=== PATIENT | female | born 1965 | race Caucasian/White ===

== ENCOUNTER 2016-06-11 07:40 | Emergency (ER) | payer BC ==
[2016-06-11 07:51] VITALS: TEMP 97.6
[2016-06-11] MEDS ORDERED: ONDANSETRON 4 MG/2 ML VIAL IVP STA (08:44)
[2016-06-11] MEDS ORDERED: SODIUM CHLORIDE 0.9% 1,000 ML IV ONE (08:44)
--- NOTE | 2016-06-11 08:49 | ED ---
Nausea/Vomiting/Diarrhea HPI - General Chief complaint: Nausea/Vomiting/Diarrhea Stated complaint: Dehydration Time Seen by Provider: 06/11/16 08:35 Source: patient, family, RN notes reviewed Mode of arrival: ambulatory Limitations: no limitations - History of Present Illness Initial comments: Patient is a 51-year-old female presents to the emergency room for evaluation of dry heaving. Patient states that she has had the dry heaves for the past week. Patient states that she is unable to keep any food down. Patient denies abdominal pain. Patient denies diarrhea or constipation. Patient states she feels like she is dehydrated because she has not been able to eat anything for the past week. Patient states she is urinating a little but not as much as she will because she is not eating or drinking. Patient also states she's had a dry cough for the past week patient does admit to smoking daily. Patient does admit to sinus congestion. Patient denies ear pain or throat pain. Patient denies any current fevers. Patient denies recent travel outside the country. Patient denies sick contacts. Patient does state she has a history of breast cancer was on chemotherapy in 2008. Patient states she has an ileostomy bag placed due to chemotherapy side effects. Patient states she is only taking Reglan as needed for stomach bloating. Patient denies being on any medications or any other significant past medical history. - Related Data Home Medications Medication Instructions Recorded Confirmed Metoclopramide [Reglan] 10 mg PO BID 06/11/16 06/11/16 Previous Rx's Medication Instructions Recorded Ciprofloxacin Oral Susp [Cipro 250 mg PO BID 5 Days 06/11/16 Susp] Ondansetron Odt [Zofran Odt] 4 mg PO Q8HR PRN #12 tab 06/11/16 Allergies Allergy/AdvReac Type Severity Reaction Status Date / Time adhesive tape Allergy Rash/Hives Verified 06/11/16 08:25 metronidazole [From Flagyl] Allergy Rash/Hives Verified 06/11/16 08:26 Review of Systems ROS Statement: Those systems with pertinent positive or pertinent negative responses have been documented in the HPI. ROS Other: All systems not noted in ROS Statement are negative. Past Medical History Past Medical History: Cancer Additional Past Medical History / Comment(s): breast History of Any Multi-Drug Resistant Organisms: None Reported Past Surgical History: Breast Surgery, Hysterectomy Additional Past Surgical History / Comment(s): ileostomy. alexis mastectomy Past Psychological History: No Psychological Hx Reported Smoking Status: Former smoker Past Alcohol Use History: None Reported Past Drug Use History: None Reported General Exam - General Exam Comments Initial Comments: Laying in exam room, no acute distress. Limitations: no limitations General appearance: alert, in no apparent distress Head exam: Present: atraumatic, normocephalic, normal inspection Eye exam: Present: normal appearance, PERRL, EOMI Pupils: Present: normal accommodation ENT exam: Present: normal exam, normal oropharynx, mucous membranes moist, TM's normal bilaterally, normal external ear exam Neck exam: Present: normal inspection, full ROM. Absent: tenderness, lymphadenopathy Respiratory exam: Present: normal lung sounds bilaterally. Absent: respiratory distress Cardiovascular Exam: Present: regular rate, normal rhythm, normal heart sounds GI/Abdominal exam: Present: soft, normal bowel sounds, other (Ileostomy bag placed). Absent: distended, tenderness, guarding, rebound, rigid Extremities exam: Present: normal inspection Back exam: Present: normal inspection Neurological exam: Present: alert, oriented X3, CN II-XII intact, normal gait Psychiatric exam: Present: normal affect, normal mood Skin exam: Present: warm, dry, intact, normal color. Absent: rash Course Vital Signs 06/11/16 06/11/16 06/11/16 07:47 10:02 11:09 Temperature 97.6 F Pulse Rate 92 60 59 L Respiratory 18 18 16 Rate Blood Pressure 85/65 81/58 94/62 O2 Sat by Pulse 98 100 100 Oximetry Medical Decision Making - Medical Decision Making Patient is a 51-year-old female presents emergency room for evaluation of nausea and decreased appetite. Labs showed no concerning findings. Urinalysis suspicious for urinary tract infection. Patient states she is feeling better after medications. Will place patient on antibiotics to treat for urinary tract infection. Advised patient to return for worsening symptoms. Patient states she understands everything that was discussed with her. Case discussed with Dr. Moncada. - Lab Data Result diagrams: 06/11/16 09:10 06/11/16 09:10 Lab Results 06/11/16 06/11/16 06/11/16 Range/Units 09:10 09:10 09:10 WBC 4.1 (3.8-10.6) k/uL RBC 4.88 (3.80-5.40) m/uL Hgb 16.1 H (11.4-16.0) gm/dL Hct 47.9 H (34.0-46.0) % MCV 98.3 (80.0-100.0) fL MCH 32.9 (25.0-35.0) pg MCHC 33.5 (31.0-37.0) g/dL RDW 14.8 (11.5-15.5) % Plt Count 192 (150-450) k/uL Neutrophils % 73 % Lymphocytes % 16 % Monocytes % 7 % Eosinophils % 2 % Basophils % 1 % Neutrophils # 3.0 (1.3-7.7) k/uL Lymphocytes # 0.6 L (1.0-4.8) k/uL Monocytes # 0.3 (0-1.0) k/uL Eosinophils # 0.1 (0-0.7) k/uL Basophils # 0.1 (0-0.2) k/uL Sodium 131 L (137-145) mmol/L Potassium 3.5 (3.5-5.1) mmol/L Chloride 93 L (98-107) mmol/L Carbon Dioxide 22 (22-30) mmol/L Anion Gap 16 mmol/L BUN 17 (7-17) mg/dL Creatinine 0.79 (0.52-1.04) mg/dL Est GFR (MDRD) Af Amer >60 (>60 ml/min/1.73 sqM) Est GFR (MDRD) Non-Af >60 (>60 ml/min/1.73 sqM) Glucose 111 H (74-99) mg/dL Calcium 9.4 (8.4-10.2) mg/dL Total Bilirubin 1.4 H (0.2-1.3) mg/dL AST 130 H (14-36) U/L ALT 102 H (9-52) U/L Alkaline Phosphatase 198 H (38-126) U/L Total Protein 7.4 (6.3-8.2) g/dL Albumin 4.5 (3.5-5.0) g/dL Amylase 73 (30-110) U/L Lipase 121 (23-300) U/L Urine Color Urine Appearance (Clear) Urine pH (5.0-8.0) Ur Specific Burt (1.001-1.035) Urine Protein (Negative) Urine Glucose (UA) (Negative) Urine Ketones (Negative) Urine Blood (Negative) Urine Nitrate (Negative) Urine Bilirubin (Negative) Urine Urobilinogen (<2.0) mg/dL Ur Leukocyte Esterase (Negative) Urine RBC (0-5) /hpf Urine WBC (0-5) /hpf Ur Squamous Epith Cells (0-4) /hpf Urine Mucus (None) /hpf Influenza Type A RNA (Not Detectd) Influenza Type B (PCR) (Not Detectd) 06/11/16 06/11/16 Range/Units 09:27 09:27 WBC (3.8-10.6) k/uL RBC (3.80-5.40) m/uL Hgb (11.4-16.0) gm/dL Hct (34.0-46.0) % MCV (80.0-100.0) fL MCH (25.0-35.0) pg MCHC (31.0-37.0) g/dL RDW (11.5-15.5) % Plt Count (150-450) k/uL Neutrophils % % Lymphocytes % % Monocytes % % Eosinophils % % Basophils % % Neutrophils # (1.3-7.7) k/uL Lymphocytes # (1.0-4.8) k/uL Monocytes # (0-1.0) k/uL Eosinophils # (0-0.7) k/uL Basophils # (0-0.2) k/uL Sodium (137-145) mmol/L Potassium (3.5-5.1) mmol/L Chloride (98-107) mmol/L Carbon Dioxide (22-30) mmol/L Anion Gap mmol/L BUN (7-17) mg/dL Creatinine (0.52-1.04) mg/dL Est GFR (MDRD) Af Amer (>60 ml/min/1.73 sqM) Est GFR (MDRD) Non-Af (>60 ml/min/1.73 sqM) Glucose (74-99) mg/dL Calcium (8.4-10.2) mg/dL Total Bilirubin (0.2-1.3) mg/dL AST (14-36) U/L ALT (9-52) U/L Alkaline Phosphatase (38-126) U/L Total Protein (6.3-8.2) g/dL Albumin (3.5-5.0) g/dL Amylase (30-110) U/L Lipase (23-300) U/L Urine Color Yellow Urine Appearance Cloudy H (Clear) Urine pH 6.0 (5.0-8.0) Ur Specific Burt 1.016 (1.001-1.035) Urine Protein 1+ H (Negative) Urine Glucose (UA) Negative (Negative) Urine Ketones 1+ H (Negative) Urine Blood Small H (Negative) Urine Nitrate Negative (Negative) Urine Bilirubin 1+ H (Negative) Urine Urobilinogen 2.0 (<2.0) mg/dL Ur Leukocyte Esterase Large H (Negative) Urine RBC 10 H (0-5) /hpf Urine WBC 11 H (0-5) /hpf Ur Squamous Epith Cells 2 (0-4) /hpf Urine Mucus Occasional H (None) /hpf Influenza Type A RNA Not Detected (Not Detectd) Influenza Type B (PCR) Not Detected (Not Detectd) - Radiology Data Radiology results: report reviewed, image reviewed Disposition Clinical Impression: Nausea and vomiting, Urinary tract infection Disposition: HOME SELF-CARE Condition: Good Instructions: Acute Nausea and Vomiting (ED), Urinary Tract Infection in Women (ED) Additional Instructions: Take antibiotics as directed. Take Zofran as needed for nausea. Please follow up with primary care provider in 1-2 days. If any new symptom arises, symptoms worsen or fever develops, return to ER as soon as possible. Prescriptions: Ondansetron Odt [Zofran Odt] 4 mg PO Q8HR PRN #12 tab PRN Reason: Nausea Ciprofloxacin Oral Susp [Cipro Susp] 250 mg PO BID 5 Days Referrals: Kip Redding MD [Primary Care Provider] - 1-2 days Time of Disposition: 10:49
[2016-06-11 09:34] LABS: Basophils # (A) 0.1 k/uL (0-0.2); Basophils % (A) 1 %; CH 34.6; CHCM 35.4; Eosinophils # (A) 0.1 k/uL (0-0.7); Eosinophils % (A) 2 %; HCT 47.9 % (34.0-46.0); HDW 2.64; HGB 16.1 gm/dL (11.4-16.0); Luc # (Auto) 0.06; Luc % (Auto) 2; Lymphocytes # (A) 0.6 k/uL (1.0-4.8); Lymphocytes % (A) 16 %; MCH 32.9 pg (25.0-35.0); MCHC 33.5 g/dL (31.0-37.0); MCV 98.3 fL (80.0-100.0); Mean Platelet Volume 8.7; Monocytes # (A) 0.3 k/uL (0-1.0); Monocytes % (A) 7 %; Neutrophils % (A) 73 %; RBC 4.88 m/uL (3.80-5.40); RDW 14.8 % (11.5-15.5); WBC 4.1 k/uL (3.8-10.6)
[2016-06-11 09:45] LABS: ALT 102 U/L (9-52); AST 130 U/L (14-36); Alkaline Phosphatase 198 U/L (38-126); Amylase 73 U/L (30-110); Anion Gap 16 mmol/L; Blood Urea Nitrogen 17 mg/dL (7-17); Calcium 9.4 mg/dL (8.4-10.2); Carbon Dioxide 22 mmol/L (22-30); Chloride 93 mmol/L (98-107); Glucose 111 mg/dL (74-99); Non-African American GFR(MDRD) >60 (>60 ml/min/1.73 sqM); Potassium 3.5 mmol/L (3.5-5.1); Sodium 131 mmol/L (137-145); Total Bilirubin 1.4 mg/dL (0.2-1.3); Total Protein 7.4 g/dL (6.3-8.2)
--- NOTE | 2016-06-11 09:48 | XR ---
EXAMINATION TYPE: XR chest 2V DATE OF EXAM: 06/11/2016 9:44 AM COMPARISON: 08/08/2013 HISTORY: Cough FINDINGS: The lungs are clear and there is no pneumothorax, pleural effusion, or focal pneumonia. Hyperinflati on suggests COPD. Biapical pleural thickening noted. Degenerative change of the spine. Diffuse osteop enia. IMPRESSION: 1. No acute process.
[2016-06-11 10:09] LABS: Appearance,Urine Cloudy (Clear); Bilirubin,Urine 1+ (Negative); Glucose,Urine (UA) Negative (Negative); Ketones,Urine 1+ (Negative); Leukocyte Esterase,Urine Large (Negative); Mucus,Urine Occasional /hpf; Nitrite,Urine Negative (Negative); Particle Count 8945; Protein,Urine 1+ (Negative); RBC,Urine 10 /hpf (0-5); Specific Gravity,Urine 1.016 (1.001-1.035); Squamous Epithelial Cell,Urine 2 /hpf (0-4); UA Billing (MACRO vs. MICRO) MICRO; WBC,Urine 11 /hpf (0-5)
[2016-06-11 11:10] VITALS: BP 94/62; PULSE 59; RESP 16
== END 2016-06-11 11:10 | disposition home or self-care (01) ==
LOC: EC 07:40
DX: N39.0 Urinary tract infection, site not specified (principal); Z93.2 Ileostomy status; F17.200 Nicotine dependence, unspecified, uncomplicated; Z79.899 Other long term (current) drug therapy; Z88.3 Allergy status to other anti-infective agents; Z85.3 Personal history of malignant neoplasm of breast
CPT/HCPCS: 36415; 80053; 82150; 83690; 85025; 81001; 87502; 71020; 99284; 96374; 96361; J2405

== ENCOUNTER 2020-04-10 21:58 | Inpatient (IN) | payer BC ==
[2020-04-10] MEDS ORDERED: ASPIRIN 81 MG PO STA (22:47)
[2020-04-10 22:52] LABS: AST 59 U/L (14-36); African American GFR (CKD) >90 (>60 ml/min/1.73 sqM); Albumin 2.3 g/dL (3.5-5.0); Alkaline Phosphatase 235 U/L (38-126); Anion Gap 11 mmol/L; Blood Urea Nitrogen 19 mg/dL (7-17); Calcium 6.9 mg/dL (8.4-10.2); Carbon Dioxide 20 mmol/L (22-30); Chloride 101 mmol/L (98-107); Glucose 161 mg/dL (74-99); Non-African American GFR(CKD) >90 (>60 ml/min/1.73 sqM); Potassium 3.4 mmol/L (3.5-5.1); Sodium 132 mmol/L (137-145); Total Bilirubin 1.7 mg/dL (0.2-1.3); Total Protein 5.1 g/dL (6.3-8.2)
[2020-04-10 22:53] LABS: Glucose,Whole Blood 153 mg/dL (75-99)
[2020-04-10 23:02] LABS: INR 1.1 (<1.2); Partial Thromboplastin Time 22.9 sec (22.0-30.0); Prothrombin Time 11.5 sec (9.0-12.0)
--- NOTE | 2020-04-10 23:04 | XR ---
EXAMINATION TYPE: XR chest 2V DATE OF EXAM: 04/10/2020 COMPARISON: 06/11/2016 HISTORY: Syncope TECHNIQUE: FINDINGS: There is pulmonary hyperinflation and flattening of the diaphragm. Heart size is normal. Th ere is no heart failure. Lungs appear clear of consolidation. There are no hilar masses. There is ost eopenia. There is some mild anterior wedging of L1 T11 T10 and T9 and T8 vertebra. T8 vertebra is 50% anterior wedging. IMPRESSION: COPD. There are multiple compression fractures that appear new compared to old exam.
[2020-04-10 23:07] LABS: ALT 17 U/L (4-34)
[2020-04-10 23:19] LABS: Anisocytosis Slight; Basophils % (A) 0 %; Eosinophils % (A) 0 %; HCT 34.9 % (34.0-46.0); HGB 10.8 gm/dL (11.4-16.0); Hypochromasia Slight; Lymphocytes # (A) 0.8 k/uL (1.0-4.8); Lymphocytes % (A) 9 %; MCH 36.8 pg (25.0-35.0); MCHC 31.1 g/dL (31.0-37.0); MCV 118.1 fL (80.0-100.0); Macrocytosis Marked; Monocytes # (A) 0.5 k/uL (0-1.0); Monocytes % (A) 6 %; Neutrophils # (A) 6.9 k/uL (1.3-7.7); Neutrophils % (A) 83 %; Platelet Count 190 k/uL (150-450); RBC 2.95 m/uL (3.80-5.40); RDW 16.5 % (11.5-15.5); WBC 8.3 k/uL (3.8-10.6)
[2020-04-10 23:20] LABS: D-Dimer 1.33 mg/L FEU (<0.60)
[2020-04-10 23:26] LABS: Magnesium 1.8 mg/dL (1.6-2.3); Phosphorus 2.8 mg/dL (2.5-4.5)
[2020-04-10] MEDS ORDERED: HEPARIN SODIUM,PORCINE 5,000 UNIT/ML 1 ML VIAL IV PRN (23:41)
[2020-04-10] MEDS ORDERED: HEPARIN SODIUM,PORCINE 10,000 UNIT/ML 1 ML VIAL IV ONE (23:41)
[2020-04-10] MEDS ORDERED: AZITHROMYCIN 500 MG in SODIUM CHLORIDE 0.9% 250 ML IVPB ONE (23:45)
[2020-04-10] MEDS ORDERED: SODIUM CHLORIDE 0.9% 1,000 ML IV SCH (23:45)
--- NOTE | 2020-04-10 23:45 | CT ---
EXAMINATION TYPE: CT chest angio for PE DATE OF EXAM: 04/10/2020 COMPARISON: None HISTORY: Syncope CT DLP: 179.5 mGycm Automated exposure control for dose reduction was used. CONTRAST: Performed with IV Contrast, patient injected with 70 mL of Isovue 300. There are 3-D post processed images. There is some bullous pulmonary emphysema. There is pulmonary hyperinflation and flattening of the di aphragm. There is no mediastinal adenopathy. There are no hilar masses. There is no aortic aneurysm o r dissection. Ascending aorta measures 2.8 cm. Heart size is normal. There is no pericardial effusion . There is some patchy infiltrate and atelectasis in the right lower lobe. There is small area of ate lectasis left posterior lung base. There are small filling defects in the right lower lobe pulmonary artery and the posterior basal segm ent. There is osteopenia. There is compression fractures of L1 and L2 up to 35%. There is T12 compression 15%. There is T11 and T10 fractures 20%. There is compression of T9 and T8 and T7 up to 50%. There is no paraspinal mass. There is some fatty infiltration of the liver. IMPRESSION: There is evidence of embolism in the right lower lobe pulmonary artery. There is some mild infiltrate and atelectasis right posterior lung base. emphysema. Multiple thoracic compression fractures. No ev idence of right heart strain. Exam was discussed with ER physician at 6:45 PM.
[2020-04-10 23:46] LABS: Appearance,Urine Cloudy (Clear); Bilirubin,Urine Negative (Negative); Blood,Urine Small (Negative); Color,Urine Yellow; Glucose,Urine (UA) Negative (Negative); Hyaline Casts,Urine 626 /lpf (0-2); Ketones,Urine Negative (Negative); Leukocyte Esterase,Urine Large (Negative); Mucus,Urine Rare /hpf; Nitrite,Urine Negative (Negative); PH, Urine 5.5 (5.0-8.0); Protein,Urine 1+ (Negative); RBC,Urine 22 /hpf (0-5); Urobilinogen,Urine <2.0 mg/dL (<2.0); WBC,Urine 110 /hpf (0-5)
[2020-04-11] MEDS: HEPARIN SOD,PORK IN 0.45% NACL 25,000 UNIT in 0.45% NACL 1 250ML.BAG IV SCH (00:21)
[2020-04-11] MEDS ORDERED: SODIUM CHLORIDE 0.9% 500 ML 500 ML IV ONE (00:59)
[2020-04-11] MEDS ORDERED: DEXTROSE 5%-0.45% NACL 1,000 ML IV ONE (00:59)
[2020-04-11] MEDS ORDERED: NALOXONE 0.4 MG/ML 1 ML VIAL IV PRN (01:26)
--- NOTE | 2020-04-11 01:27 | ED ---
General Adult HPI - General Chief complaint: Syncope Stated complaint: Syncope Time Seen by Provider: 04/10/20 22:06 Source: patient, EMS, RN notes reviewed, old records reviewed Mode of arrival: EMS Limitations: no limitations - History of Present Illness Initial comments: 55 year old female patient to ED for weakness, syncopal episode reports that patient is severely malnourished, has very limited oral intake. Patient does have a history of breast cancer and is thought to be remission. Patient has been feeling weak and getting lightheaded when ambulating. Had a brief syncopal episode on the toilet today. Patient reports she has been having chest pain the last 2 days but denies any current pain, denies prior cardiac history. Denies any abdominal pain, any other acute complaints. Systemic: Pt denies fatigue, fever/chills, rash. Pt denies weakness, night sweats, weight loss. Neuro: Pt denies headache, visual disturbances, pre-syncope. HEENT: Pt denies ocular discharge or irritation, otalgia, rhinorrhea, pharyngitis or notable lymphadenopathy. Cardiopulmonary: Pt denies SOB, heart palpitations, dyspnea on exertion. Abdominal/GI: Pt denies abdominal pain, n/v/d. : Pt denies dysuria, burning w/ urination, frequency/urgency. Denies new onset urinary or bowel incontinence. MSK: Pt denies myalgia, loss of strength or function in extremities. Neuro: Pt denies new onset weakness, paresthesias. - Related Data Home Medications Medication Instructions Recorded Confirmed Metoclopramide [Reglan] 10 mg PO BID 06/11/16 06/11/16 Allergies Allergy/AdvReac Type Severity Reaction Status Date / Time adhesive tape Allergy Rash/Hives Verified 04/10/20 22:14 metronidazole [From Flagyl] Allergy Rash/Hives Verified 04/10/20 22:14 Review of Systems ROS Statement: Those systems with pertinent positive or pertinent negative responses have been documented in the HPI. ROS Other: All systems not noted in ROS Statement are negative. Past Medical History Past Medical History: Cancer Additional Past Medical History / Comment(s): breast History of Any Multi-Drug Resistant Organisms: None Reported Past Surgical History: Breast Surgery, Hysterectomy Additional Past Surgical History / Comment(s): ileostomy. alexis mastectomy Past Psychological History: No Psychological Hx Reported Smoking Status: Current every day smoker Past Alcohol Use History: None Reported Past Drug Use History: None Reported General Exam - General Exam Comments Initial Comments: Constitutional: NAD, AOX3, Pt has pleasant affect. HEENT: NC/AT, trachea midline, neck supple, no lymphadenopathy. Posterior pharynx non erythematous, without exudates. External ears appear normal, without discharge. Mucous membranes moist. Eyes PERRLA, EOM intact. There is no scleral icterus. No pallor noted. Cardiopulmonary: RRR, no murmurs, rubs or gallops, no JVD noted. Lungs CTAB in a nterior and posterior bustamante. No peripheral edema. Abdominal exam: Abdomen soft and non-distended. Abdomen non-tender to palpation in all 4 quadrants. Bowel sounds active in LLQ. No hepatosplenomegaly. No ecchymosis Neuro: CN II-XII grossly intact. No nuchal rigidity. No raccon eyes, no miller sign, no hemotympanum. No cervical spinal tenderness. MSK: Full active ROM in upper and lower extremities, 5/5 stregnth. Limitations: no limitations Course Vital Signs 04/10/20 04/10/20 04/11/20 22:08 23:30 00:06 Temperature 97.6 F Pulse Rate 87 74 73 Respiratory 18 16 16 Rate Blood Pressure 121/81 106/73 129/86 O2 Sat by Pulse 98 99 99 Oximetry 04/11/20 01:00 Temperature Pulse Rate 137 H Respiratory 16 Rate Blood Pressure 107/74 O2 Sat by Pulse 96 Oximetry Medical Decision Making - Medical Decision Making 55-year-old female patient to ED for generalized weakness, syncopal episode. Patient is severely malnourished has a BMI of 10 and weight 29 kg. Patient does have ileostomy. No signs are stable, afebrile. Physical exam negative for acute pathology. Laboratory investigations reveal mildelectrolyte abnormalities urinary tract infection, elevated lactic acid. Slightly elevated BNP negative troponin. EKG does display diffuse inverted T waves. Cardiology was contacted by Dr. Ignacio. CTA is positive for right lower lobe PE. Mild infiltrate, emphysema, multiple thoracic depression fractures, no evidence of right heart strain. Patient initiated antibiotics anticoagulation, denies any CI to anticoagulation, will be admitted for further evaluation. Case discussed in depth with Dr. Ignacio. - Lab Data Result diagrams: 04/10/20 22:35 04/10/20 22:35 Lab Results 04/10/20 04/10/20 04/10/20 Range/Units 22:35 22:35 22:35 WBC 8.3 (3.8-10.6) k/uL RBC 2.95 L (3.80-5.40) m/uL Hgb 10.8 L (11.4-16.0) gm/dL Hct 34.9 (34.0-46.0) % MCV 118.1 H (80.0-100.0) fL MCH 36.8 H (25.0-35.0) pg MCHC 31.1 (31.0-37.0) g/dL RDW 16.5 H (11.5-15.5) % Plt Count 190 (150-450) k/uL MPV 9.0 Neutrophils % 83 % Lymphocytes % 9 % Monocytes % 6 % Eosinophils % 0 % Basophils % 0 % Neutrophils # 6.9 (1.3-7.7) k/uL Lymphocytes # 0.8 L (1.0-4.8) k/uL Monocytes # 0.5 (0-1.0) k/uL Eosinophils # 0.0 (0-0.7) k/uL Basophils # 0.0 (0-0.2) k/uL Manual Slide Review Performed Hypochromasia Slight Anisocytosis Slight Macrocytosis Marked A PT 11.5 (9.0-12.0) sec INR 1.1 (<1.2) APTT 22.9 (22.0-30.0) sec D-Dimer 1.33 H (<0.60) mg/L FEU Sodium (137-145) mmol/L Potassium (3.5-5.1) mmol/L Chloride (98-107) mmol/L Carbon Dioxide (22-30) mmol/L Anion Gap mmol/L BUN (7-17) mg/dL Creatinine (0.52-1.04) mg/dL Est GFR (CKD-EPI)AfAm (>60 ml/min/1.73 sqM) Est GFR (CKD-EPI)NonAf (>60 ml/min/1.73 sqM) Glucose (74-99) mg/dL POC Glucose (mg/dL) (75-99) mg/dL POC Glu Pattern Maker ID Plasma Lactic Acid Chase (0.7-2.0) mmol/L Calcium (8.4-10.2) mg/dL Phosphorus (2.5-4.5) mg/dL Magnesium (1.6-2.3) mg/dL Total Bilirubin (0.2-1.3) mg/dL AST (14-36) U/L ALT (4-34) U/L Alkaline Phosphatase (38-126) U/L Troponin I (0.000-0.034) ng/mL NT-Pro-B Natriuret Pep pg/mL Total Protein (6.3-8.2) g/dL Albumin (3.5-5.0) g/dL Urine Color Yellow Urine Appearance Cloudy H (Clear) Urine pH 5.5 (5.0-8.0) Ur Specific [place] 1.050 H (1.001-1.035) Urine Protein 1+ H (Negative) Urine Glucose (UA) Negative (Negative) Urine Ketones Negative (Negative) Urine Blood Small H (Negative) Urine Nitrite Negative (Negative) Urine Bilirubin Negative (Negative) Urine Urobilinogen <2.0 (<2.0) mg/dL Ur Leukocyte Esterase Large H (Negative) Urine RBC 22 H (0-5) /hpf Urine WBC 110 H (0-5) /hpf Urine WBC Clumps Many H (None) /hpf Hyaline Casts 626 H (0-2) /lpf Urine Mucus Rare H (None) /hpf 04/10/20 04/10/20 04/10/20 Range/Units 22:35 22:35 22:51 WBC (3.8-10.6) k/uL RBC (3.80-5.40) m/uL Hgb (11.4-16.0) gm/dL Hct (34.0-46.0) % MCV (80.0-100.0) fL MCH (25.0-35.0) pg MCHC (31.0-37.0) g/dL RDW (11.5-15.5) % Plt Count (150-450) k/uL MPV Neutrophils % % Lymphocytes % % Monocytes % % Eosinophils % % Basophils % % Neutrophils # (1.3-7.7) k/uL Lymphocytes # (1.0-4.8) k/uL Monocytes # (0-1.0) k/uL Eosinophils # (0-0.7) k/uL Basophils # (0-0.2) k/uL Manual Slide Review Hypochromasia Anisocytosis Macrocytosis PT (9.0-12.0) sec INR (<1.2) APTT (22.0-30.0) sec D-Dimer (<0.60) mg/L FEU Sodium 132 L (137-145) mmol/L Potassium 3.4 L (3.5-5.1) mmol/L Chloride 101 (98-107) mmol/L Carbon Dioxide 20 L (22-30) mmol/L Anion Gap 11 mmol/L BUN 19 H (7-17) mg/dL Creatinine 0.49 L (0.52-1.04) mg/dL Est GFR (CKD-EPI)AfAm >90 (>60 ml/min/1.73 sqM) Est GFR (CKD-EPI)NonAf >90 (>60 ml/min/1.73 sqM) Glucose 161 H (74-99) mg/dL POC Glucose (mg/dL) 153 H (75-99) mg/dL POC Glu Pattern Maker ID Lisbeth Camacho Plasma Lactic Acid Chase (0.7-2.0) mmol/L Calcium 6.9 L (8.4-10.2) mg/dL Phosphorus (2.5-4.5) mg/dL Magnesium (1.6-2.3) mg/dL Total Bilirubin 1.7 H (0.2-1.3) mg/dL AST 59 H (14-36) U/L ALT 17 (4-34) U/L Alkaline Phosphatase 235 H (38-126) U/L Troponin I <0.012 (0.000-0.034) ng/mL NT-Pro-B Natriuret Pep pg/mL Total Protein 5.1 L (6.3-8.2) g/dL Albumin 2.3 L (3.5-5.0) g/dL Urine Color Urine Appearance (Clear) Urine pH (5.0-8.0) Ur Specific [place] (1.001-1.035) Urine Protein (Negative) Urine Glucose (UA) (Negative) Urine Ketones (Negative) Urine Blood (Negative) Urine Nitrite (Negative) Urine Bilirubin (Negative) Urine Urobilinogen (<2.0) mg/dL Ur Leukocyte Esterase (Negative) Urine RBC (0-5) /hpf Urine WBC (0-5) /hpf Urine WBC Clumps (None) /hpf Hyaline Casts (0-2) /lpf Urine Mucus (None) /hpf 04/10/20 04/10/20 04/11/20 Range/Units 22:51 23:50 00:15 WBC (3.8-10.6) k/uL RBC (3.80-5.40) m/uL Hgb (11.4-16.0) gm/dL Hct (34.0-46.0) % MCV (80.0-100.0) fL MCH (25.0-35.0) pg MCHC (31.0-37.0) g/dL RDW (11.5-15.5) % Plt Count (150-450) k/uL MPV Neutrophils % % Lymphocytes % % Monocytes % % Eosinophils % % Basophils % % Neutrophils # (1.3-7.7) k/uL Lymphocytes # (1.0-4.8) k/uL Monocytes # (0-1.0) k/uL Eosinophils # (0-0.7) k/uL Basophils # (0-0.2) k/uL Manual Slide Review Hypochromasia Anisocytosis Macrocytosis PT (9.0-12.0) sec INR (<1.2) APTT (22.0-30.0) sec D-Dimer (<0.60) mg/L FEU Sodium (137-145) mmol/L Potassium (3.5-5.1) mmol/L Chloride (98-107) mmol/L Carbon Dioxide (22-30) mmol/L Anion Gap mmol/L BUN (7-17) mg/dL Creatinine (0.52-1.04) mg/dL Est GFR (CKD-EPI)AfAm (>60 ml/min/1.73 sqM) Est GFR (CKD-EPI)NonAf (>60 ml/min/1.73 sqM) Glucose (74-99) mg/dL POC Glucose (mg/dL) (75-99) mg/dL POC Glu Pattern Maker ID Plasma Lactic Acid Chase 4.7 H* (0.7-2.0) mmol/L Calcium (8.4-10.2) mg/dL Phosphorus 2.8 (2.5-4.5) mg/dL Magnesium 1.8 (1.6-2.3) mg/dL Total Bilirubin (0.2-1.3) mg/dL AST (14-36) U/L ALT (4-34) U/L Alkaline Phosphatase (38-126) U/L Troponin I (0.000-0.034) ng/mL NT-Pro-B Natriuret Pep 1050 pg/mL Total Protein (6.3-8.2) g/dL Albumin (3.5-5.0) g/dL Urine Color Urine Appearance (Clear) Urine pH (5.0-8.0) Ur Specific [place] (1.001-1.035) Urine Protein (Negative) Urine Glucose (UA) (Negative) Urine Ketones (Negative) Urine Blood (Negative) Urine Nitrite (Negative) Urine Bilirubin (Negative) Urine Urobilinogen (<2.0) mg/dL Ur Leukocyte Esterase (Negative) Urine RBC (0-5) /hpf Urine WBC (0-5) /hpf Urine WBC Clumps (None) /hpf Hyaline Casts (0-2) /lpf Urine Mucus (None) /hpf Disposition Clinical Impression: Pneumonia, Pulmonary embolism, UTI (urinary tract infection) Disposition: ADMITTED IP TO THIS HOSP Condition: Serious Is patient prescribed a controlled substance at d/c from ED?: No Referrals: Kip Redding MD [Primary Care Provider] - 1-2 days
[2020-04-11 07:28] LABS: Anisocytosis Slight; Basophils % (A) 0 %; Eosinophils # (A) 0.1 k/uL (0-0.7); Eosinophils % (A) 1 %; HGB 9.7 gm/dL (11.4-16.0); Lymphocytes # (A) 1.4 k/uL (1.0-4.8); Lymphocytes % (A) 14 %; MCH 36.6 pg (25.0-35.0); MCHC 31.2 g/dL (31.0-37.0); MCV 117.4 fL (80.0-100.0); Macrocytosis Marked; Mean Platelet Volume 7.8; Monocytes # (A) 0.5 k/uL (0-1.0); Monocytes % (A) 5 %; Neutrophils # (A) 7.9 k/uL (1.3-7.7); Platelet Count 183 k/uL (150-450); RBC 2.64 m/uL (3.80-5.40); RDW 16.3 % (11.5-15.5)
--- NOTE | 2020-04-11 10:49 | ECHOF ---
Referral Reason:PE MEASUREMENTS -------- HEIGHT: 167.6 cm WEIGHT: 28.6 kg BP: 98/52 IVSd: 0.8 cm (0.6 - 1.1) LVIDd: 3.4 cm (3.9 - 5.3) LVPWd: 0.8 cm (0.6 - 1.1) EDV(Teich): 46 ml IVSs: 1.1 cm LVIDs: 2.3 cm LVPWs: 1.2 cm %IVS Thck: 31 % ESV(Teich): 19 ml EF(Teich): 59 % %FS: 31 % SV(Teich): 27 ml LA Diam: 2.5 cm (2.7 - 3.8) RVIDd: 1.9 cm (< 3.3) Ao Diam: 2.8 cm (2.0 - 3.7) AV Cusp: 1.6 cm (1.5 - 2.6) EPSS: 0.6 cm MV E Leonides: 0.86 m/s MV DecT: 209 ms MV Dec A[place]ac: 4.1 m/s MV A Leonides: 0.63 m/s MV E/A Ratio: 1.37 MV PHT: 61 ms AV Vmax: 1.09 m/s AV maxP.76 mmHg TR Vmax: 2.62 m/s TR maxP.48 mmHg RAP: 5.00 mmHg RVSP: 32.48 mmHg MV EF SLOPE: 200.83 mm/s (70 - 150) MV EXCURSION: 23.97 mm (> 18.000) FINDINGS -------- Sinus rhythm. This was a technically adequate study. The left ventricular size is normal. Left ventricular wall thickness is normal. Overall left vent ricular systolic function is normal with, an EF between 60 - 65 %. The right ventricle is normal in size. The left atrial size is normal. The right atrium is normal in size. Interatrial and interventricular septum intact. The aortic valve was not well visualized. Mitral valve is thickened with myxomatous degeneration. Mild mitral annular calcification present. [id number] mitral regurgitation is present. Mild tricuspid regurgitation present. Right ventricular systolic pressure is normal at < 35 mmHg. The pulmonic valve was not well visualized. The aortic root size is normal. Normal inferior vena cava with normal inspiratory collapse consistent with estimated right atrial pre ssure of 5 mmHg. There is a trivial pericardial effusion present. CONCLUSIONS -------- 1. The left ventricular size is normal. 2. Left ventricular wall thickness is normal. 3. Overall left ventricular systolic function is normal with, an EF between 60 - 65 %. 4. Mitral valve is thickened with myxomatous degeneration. 5. Mild mitral annular calcification present. 6. [id number] mitral regurgitation is present. 7. Mild tricuspid regurgitation present. 8. There is a trivial pericardial effusion present. PROPERTY MANAGEMENT ASSISTANT: Tammy Gilliland RDCS
[2020-04-11] MEDS ORDERED: METOCLOPRAMIDE 5 MG TAB PO PRN (11:08)
--- NOTE | 2020-04-11 11:18 | P.CRDCN ---
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 We have been asked to see the patient in consultation for pulmonary emboli. Patient states she refuses to eat any foods or liquids because she does not like the way her stool comes out of her ileostomy. She states she is bedbound at home. She states two days ago she began having chest pain at home while at rest. Denies any radiation. Denies any shortness of breath. She states the pain resolved on its own after about 12 hours. She states yesterday she felt "out of it", dizzy, and lightheaded. Patient had a CTA in the ER due to elevated D-Dimer. She was found to have a right lower lobe pulmonary emboli. She was started on a heparin drip. Patient refuses to take oral medications unless it is in liquid form because she states "it will clog my ileostomy". DIAGNOSTICS: EKG reveals sinus rhythm with diffuse T-wave inversion Chest xray COPD. Multiple compression fractures that appear new compared to old exam CTA evidence of embolism in the right lower lobe pulmonary artery. Mild infiltrate and atelectasis right posterior lung base. Emphysema. Multiple thoracic compression fractures. No evidence of right heart strain. Laboratory data: WBC 10.0. Hemoglobin 9.7. Platelet count 183. D-dimer 1.33. Sodium 132. Potassium 3.4. BUN 19. Creatinine 0.49. Lactic acid 4.7. Repeat 2.9. Troponin negative 1. BNP 1050. Current home cardiac medications include none. REVIEW OF SYSTEMS: At the time of my exam: CONSTITUTIONAL: Denies fever or chills. HEENT: Denies blurred vision, vision changes, or eye pain. Denies hemoptysis CARDIOVASCULAR: Denies chest pain, orthopnea, PND or palpitations RESPIRATORY: No shortness of breath. GASTROINTESTINAL: Denies abdominal pain. Denies nausea or vomiting. HEMATOLOGIC: Denies bleeding disorders. GENITOURINARY: Denies any blood in urine. SKIN: Denies pruitis. Denies rash. PHYSICAL EXAM: VITAL SIGNS: Reviewed. GENERAL: Well-developed in no acute distress-extremely frail and cachectic.. HEENT: Head is normocephalic. Pupils are equal, round. Sclerae anicteric. Mucous membranes of the mouth are moist. Neck supple. No JVD or thyromegaly LUNGS: Respirations even and unlabored. Lungs essentially clear to auscultation bilaterally. HEART: Regular rate and rhythm. S1 and S2 heard. ABDOMEN: Soft. Nondistended. Nontender. EXTREMITIES: Normal range of motion. No clubbing or cyanosis. Peripheral pulses intact. No lower extremity edema. Wound to upper aspect of left lower extremity. NEUROLOGIC: Somewhat lethargic. Awakens easily to verbal stimuli. Oriented x 3. ASSESSMENT: Right lower lobe pulmonary emboli Chest pain, resolved History of breast cancer History of ileostomy Severe malnourishment, BMI 10 PLAN: Obtain 2 additional troponin levels Obtain 2D echo to assess cardiac structure and function Continue heparin drip. Patient refusing to take oral medications. May consider lovenox, however patient likely does not have enough subcutaneous tissue for injections. Await pulmonary evaluation and recommendations for anticoagulation. Nurse practitioner note has been reviewed by physician. Signing provider agrees with the documented findings, assessment, and plan of care. Past Medical History Past Medical History: Cancer Additional Past Medical History / Comment(s): Breast CA, chronic pain History of Any Multi-Drug Resistant Organisms: None Reported Past Surgical History: Breast Surgery, Hysterectomy Additional Past Surgical History / Comment(s): ileostomy,alexis mastectomy, complete hysterectomy Past Psychological History: No Psychological Hx Reported Smoking Status: Current every day smoker Past Alcohol Use History: None Reported Past Drug Use History: None Reported Medications and Allergies Home Medications Medication Instructions Recorded Confirmed Type Metoclopramide [Reglan] 5 mg PO TID 04/11/20 04/11/20 History Allergies Allergy/AdvReac Type Severity Reaction Status Date / Time adhesive tape Allergy Rash/Hives Verified 04/11/20 08:08 metronidazole [From Flagyl] Allergy Rash/Hives Verified 04/11/20 08:08 Physical Exam Vitals: Vital Signs Temp Pulse Pulse Resp BP BP Pulse Ox 04/11/20 04:25 98.1 F 76 16 98/52 98 04/11/20 03:32 98.7 F 80 16 118/80 100 04/11/20 03:00 73 16 120/83 100 04/11/20 02:00 80 18 120/86 99 04/11/20 01:00 137 H 16 107/74 96 04/11/20 00:06 73 16 129/86 99 04/10/20 23:30 74 16 106/73 99 04/10/20 22:08 97.6 F 87 18 121/81 98 Intake and Output 04/10/20 04/11/20 04/11/20 22:59 06:59 14:59 Intake Total 44.5 Output Total 120 Balance -120 44.5 Intake: Intake, IV Titration 44.5 Amount Heparin Sod,Pork in 0.45% 44.5 NaCl 25,000 unit In 0.45 % NaCl 1 250ml.bag @ 18 UNITS/KG/HR 5.225 mls/hr IV .Q24H [facility] Rx#: [id number] Output: Urine 120 Other: # Voids 1 Weight 29.03 kg 29 kg Results 04/11/20 06:16 04/10/20 22:35 Cardiac Enzymes 04/10/20 04/10/20 Range/Units 22:35 22:35 AST 59 H (14-36) U/L Troponin I <0.012 (0.000-0.034) ng/mL Coagulation 04/10/20 04/11/20 Range/Units 22:35 06:16 PT 11.5 (9.0-12.0) sec APTT 22.9 99.6 H (22.0-30.0) sec CBC 04/10/20 04/11/20 Range/Units 22:35 06:16 WBC 8.3 10.0 (3.8-10.6) k/uL RBC 2.95 L 2.64 L (3.80-5.40) m/uL Hgb 10.8 L 9.7 L (11.4-16.0) gm/dL Hct 34.9 31.0 L (34.0-46.0) % Plt Count 190 183 (150-450) k/uL Comprehensive Metabolic Panel 04/10/20 Range/Units 22:35 Sodium 132 L (137-145) mmol/L Potassium 3.4 L (3.5-5.1) mmol/L Chloride 101 (98-107) mmol/L Carbon Dioxide 20 L (22-30) mmol/L BUN 19 H (7-17) mg/dL Creatinine 0.49 L (0.52-1.04) mg/dL Glucose 161 H (74-99) mg/dL Calcium 6.9 L (8.4-10.2) mg/dL AST 59 H (14-36) U/L ALT 17 (4-34) U/L Alkaline Phosphatase 235 H (38-126) U/L Total Protein 5.1 L (6.3-8.2) g/dL Albumin 2.3 L (3.5-5.0) g/dL Current Medications Generic Name Dose Route Start Last Admin Trade Name Freq PRN Reason Stop Dose Admin Heparin Sodium (Porcine) 0 unit 04/10/20 23:41 Heparin Sodium,Porcine 5,000 Unit/Ml 1 Ml Vial IV PER PROTOCOL PRN Low PTT Protocol Heparin Sodium/Sodium Chloride 250 mls @ 5.225 mls/hr 04/10/20 23:45 04/11/20 08:52 25,000 unit/ Sodium Chloride IV 15 units/kg/hr .Q24H [facility] 4.355 mls/hr Titration Protocol 18 UNITS/KG/HR Dextrose/Sodium Chloride 1,000 mls @ 75 mls/hr 04/11/20 00:59 04/11/20 02:07 Dextrose 5%-1/2ns Iv Soln IV 04/11/20 14:18 75 mls/hr .[id number] ONE Administration Naloxone HCl 0.2 mg 04/11/20 01:26 Naloxone 0.4 Mg/Ml 1 Ml Vial IV Q2M PRN Opioid Reversal Intake and Output 04/10/20 04/11/20 04/11/20 22:59 06:59 14:59 Intake Total 44.5 Output Total 120 Balance -120 44.5 Intake: Intake, IV Titration 44.5 Amount Heparin Sod,Pork in 0.45% 44.5 NaCl 25,000 unit In 0.45 % NaCl 1 250ml.bag @ 18 UNITS/KG/HR 5.225 mls/hr IV .Q24H [facility] Rx#: [id number] Output: Urine 120 Other: # Voids 1 Weight 29.03 kg 29 kg 04/11/20 06:16 04/10/20 22:35
--- NOTE | 2020-04-11 14:27 | P.HPIM ---
History of Present Illness 55-year-old female came in with compensative syncope, generalized weakness. Patient is found to have pulmonary embolism patient was having chest pain pleuritic at that time along with shortness of breath. These improved. Patient is not requiring any oxygen at this time. Patient is a thin built is severely cachectic malnourished. Patient has BMI of around 10. Patient had a history of breast cancer and patient in the past had a ileostomy. Since here ileostomy patient refuses to take any medications, refuses to eat or drink patient barely eats. I had a lengthy discussion with the on phone. since her ileostomy patient stopped and or drinking because he doesn't like the way the stool comes out of the ileostomy. Patient has been bedbound mostly and she understands this is because of malnourishment and that led to having a DVT and a PE. After extensive discussion with the patient patient is agreeable to take ensure and she believes she cannot take any pills as pills get stuck in the ostomy. After extensive counseling patient agreed to take Eliquis. Patient denied any UTI symptoms urine is of normal received Rocephin in ER. Patient admits to losing significant weight recently because she doesn't want to eat anything. Review of Systems All other review of systems are negative except those mentioned in HPI Past Medical History Past Medical History: Cancer Additional Past Medical History / Comment(s): Breast CA, chronic pain History of Any Multi-Drug Resistant Organisms: None Reported Past Surgical History: Breast Surgery, Hysterectomy Additional Past Surgical History / Comment(s): ileostomy,alexis mastectomy, complete hysterectomy Past Psychological History: No Psychological Hx Reported Smoking Status: Current every day smoker Past Alcohol Use History: None Reported Past Drug Use History: None Reported Medications and Allergies Home Medications Medication Instructions Recorded Confirmed Type Metoclopramide [Reglan] 5 mg PO TID 04/11/20 04/11/20 History Allergies Allergy/AdvReac Type Severity Reaction Status Date / Time adhesive tape Allergy Rash/Hives Verified 04/11/20 08:08 metronidazole [From Flagyl] Allergy Rash/Hives Verified 04/11/20 08:08 Physical Exam Vitals: Vital Signs Temp Pulse Pulse Resp BP BP Pulse Ox 04/11/20 12:00 98.7 F 75 16 129/86 96 04/11/20 08:00 97 F L 71 16 114/75 96 04/11/20 04:25 98.1 F 76 16 98/52 98 04/11/20 03:32 98.7 F 80 16 118/80 100 04/11/20 03:00 73 16 120/83 100 04/11/20 02:00 80 18 120/86 99 04/11/20 01:00 137 H 16 107/74 96 04/11/20 00:06 73 16 129/86 99 04/10/20 23:30 74 16 106/73 99 04/10/20 22:08 97.6 F 87 18 121/81 98 Intake and Output 04/10/20 04/11/20 04/11/20 22:59 06:59 14:59 Intake Total 44.5 Output Total 120 Balance -120 44.5 Intake: Intake, IV Titration 44.5 Amount Heparin Sod,Pork in 0.45% 44.5 NaCl 25,000 unit In 0.45 % NaCl 1 250ml.bag @ 18 UNITS/KG/HR 5.225 mls/hr IV .Q24H [facility] Rx#: [id number] Output: Urine 120 Other: # Voids 1 Weight 29.03 kg 29 kg PHYSICAL EXAMINATION: GENERAL: The patient is alert and oriented x3, not in any acute distress. Thin built small nourished dry skin HEENT: Pupils are round and equally reacting to light. EOMI. No scleral icterus. No conjunctival pallor. Normocephalic, atraumatic. No pharyngeal erythema. No thyromegaly. CARDIOVASCULAR: S1 and S2 present. No murmurs, rubs, or gallops. PULMONARY: Chest is clear to auscultation, no wheezing or crackles. ABDOMEN: Soft, nontender, nondistended, normoactive bowel sounds. No palpable o rganomegaly. MUSCULOSKELETAL: No joint swelling or deformity. EXTREMITIES: No cyanosis, clubbing, or pedal edema. NEUROLOGICAL: Gross neurological examination did not reveal any focal deficits. SKIN: Dry mucous membranes, sunken cheeks temporal wasting Results CBC & Chem 7: 04/11/20 06:16 04/10/20 22:35 Labs: Abnormal Lab Results - Last 24 Hours (Table) 04/10/20 04/10/20 04/10/20 Range/Units 22:35 22:35 22:35 RBC 2.95 L (3.80-5.40) m/uL Hgb 10.8 L (11.4-16.0) gm/dL Hct (34.0-46.0) % MCV 118.1 H (80.0-100.0) fL MCH 36.8 H (25.0-35.0) pg RDW 16.5 H (11.5-15.5) % Lymphocytes # 0.8 L (1.0-4.8) k/uL Macrocytosis Marked A APTT (22.0-30.0) sec D-Dimer 1.33 H (<0.60) mg/L FEU Sodium (137-145) mmol/L Potassium (3.5-5.1) mmol/L Carbon Dioxide (22-30) mmol/L BUN (7-17) mg/dL Creatinine (0.52-1.04) mg/dL Glucose (74-99) mg/dL POC Glucose (mg/dL) (75-99) mg/dL Plasma Lactic Acid Chase (0.7-2.0) mmol/L Calcium (8.4-10.2) mg/dL Total Bilirubin (0.2-1.3) mg/dL AST (14-36) U/L Alkaline Phosphatase (38-126) U/L Total Protein (6.3-8.2) g/dL Albumin (3.5-5.0) g/dL Urine Appearance Cloudy H (Clear) Ur Specific [place] 1.050 H (1.001-1.035) Urine Protein 1+ H (Negative) Urine Blood Small H (Negative) Ur Leukocyte Esterase Large H (Negative) Urine RBC 22 H (0-5) /hpf Urine WBC 110 H (0-5) /hpf Urine WBC Clumps Many H (None) /hpf Hyaline Casts 626 H (0-2) /lpf Urine Mucus Rare H (None) /hpf 04/10/20 04/10/20 04/11/20 Range/Units 22:35 22:51 00:15 RBC (3.80-5.40) m/uL Hgb (11.4-16.0) gm/dL Hct (34.0-46.0) % MCV (80.0-100.0) fL MCH (25.0-35.0) pg RDW (11.5-15.5) % Lymphocytes # (1.0-4.8) k/uL Macrocytosis APTT (22.0-30.0) sec D-Dimer (<0.60) mg/L FEU Sodium 132 L (137-145) mmol/L Potassium 3.4 L (3.5-5.1) mmol/L Carbon Dioxide 20 L (22-30) mmol/L BUN 19 H (7-17) mg/dL Creatinine 0.49 L (0.52-1.04) mg/dL Glucose 161 H (74-99) mg/dL POC Glucose (mg/dL) 153 H (75-99) mg/dL Plasma Lactic Acid Chase 4.7 H* (0.7-2.0) mmol/L Calcium 6.9 L (8.4-10.2) mg/dL Total Bilirubin 1.7 H (0.2-1.3) mg/dL AST 59 H (14-36) U/L Alkaline Phosphatase 235 H (38-126) U/L Total Protein 5.1 L (6.3-8.2) g/dL Albumin 2.3 L (3.5-5.0) g/dL Urine Appearance (Clear) Ur Specific [place] (1.001-1.035) Urine Protein (Negative) Urine Blood (Negative) Ur Leukocyte Esterase (Negative) Urine RBC (0-5) /hpf Urine WBC (0-5) /hpf Urine WBC Clumps (None) /hpf Hyaline Casts (0-2) /lpf Urine Mucus (None) /hpf 04/11/20 04/11/20 04/11/20 Range/Units 02:55 06:16 06:16 RBC 2.64 L (3.80-5.40) m/uL Hgb 9.7 L (11.4-16.0) gm/dL Hct 31.0 L (34.0-46.0) % MCV 117.4 H (80.0-100.0) fL MCH 36.6 H (25.0-35.0) pg RDW 16.3 H (11.5-15.5) % Lymphocytes # (1.0-4.8) k/uL Macrocytosis Marked A APTT 99.6 H (22.0-30.0) sec D-Dimer (<0.60) mg/L FEU Sodium (137-145) mmol/L Potassium (3.5-5.1) mmol/L Carbon Dioxide (22-30) mmol/L BUN (7-17) mg/dL Creatinine (0.52-1.04) mg/dL Glucose (74-99) mg/dL POC Glucose (mg/dL) (75-99) mg/dL Plasma Lactic Acid Chase 3.0 H* (0.7-2.0) mmol/L Calcium (8.4-10.2) mg/dL Total Bilirubin (0.2-1.3) mg/dL AST (14-36) U/L Alkaline Phosphatase (38-126) U/L Total Protein (6.3-8.2) g/dL Albumin (3.5-5.0) g/dL Urine Appearance (Clear) Ur Specific [place] (1.001-1.035) Urine Protein (Negative) Urine Blood (Negative) Ur Leukocyte Esterase (Negative) Urine RBC (0-5) /hpf Urine WBC (0-5) /hpf Urine WBC Clumps (None) /hpf Hyaline Casts (0-2) /lpf Urine Mucus (None) /hpf 04/11/20 04/11/20 04/11/20 Range/Units 06:16 09:39 13:00 RBC (3.80-5.40) m/uL Hgb (11.4-16.0) gm/dL Hct (34.0-46.0) % MCV (80.0-100.0) fL MCH (25.0-35.0) pg RDW (11.5-15.5) % Lymphocytes # (1.0-4.8) k/uL Macrocytosis APTT (22.0-30.0) sec D-Dimer (<0.60) mg/L FEU Sodium (137-145) mmol/L Potassium (3.5-5.1) mmol/L Carbon Dioxide (22-30) mmol/L BUN (7-17) mg/dL Creatinine (0.52-1.04) mg/dL Glucose (74-99) mg/dL POC Glucose (mg/dL) (75-99) mg/dL Plasma Lactic Acid Chase 2.9 H* 2.9 H* 3.5 H* (0.7-2.0) mmol/L Calcium (8.4-10.2) mg/dL Total Bilirubin (0.2-1.3) mg/dL AST (14-36) U/L Alkaline Phosphatase (38-126) U/L Total Protein (6.3-8.2) g/dL Albumin (3.5-5.0) g/dL Urine Appearance (Clear) Ur Specific [place] (1.001-1.035) Urine Protein (Negative) Urine Blood (Negative) Ur Leukocyte Esterase (Negative) Urine RBC (0-5) /hpf Urine WBC (0-5) /hpf Urine WBC Clumps (None) /hpf Hyaline Casts (0-2) /lpf Urine Mucus (None) /hpf Thrombosis Risk Factor Assmnt - Choose All That Apply Each Factor Represents 1 point: Age 41-60 years, Medical pt on bed rest Each Risk Factor Represents 2 Points: Patient confined to bed Thrombosis Risk Factor Assessment Total Risk Factor Score: 4 Thrombosis Risk Factor Assessment Level: Moderate Risk Assessment and Plan Plan: -Right lower lobe pulmonary emboli: We'll continue with IV heparin today. We'll decision Eliquis tomorrow. -Generalized weakness secondary to severe malnourishment patient will be started on ensure. Physical therapy and occupational therapy will be consulted patient may need rehab or even assisted. -Chest pain secondary to be which resolved -Asymptomatic bacteriuria: No need to continue the antibiotics -Hypovolemic hyponatremia: Continue with IV fluids -Hypokalemia potassium will be supplemented secondary to poor by mouth intake -History of breast cancer in remission -Lactic acidosis: Secondary to severe intravascular depletion: IV fluids will be continued -Nicotine abuse -Apparently patient had a alcohol use history patient just use to drink beers but quit doing that as well as patient started having intractable nausea vomiting because of possible alcoholic gastritis
[2020-04-11 14:36] LABS: Hypersegmented Neutrophils Present
[2020-04-11 14:38] VITALS: BMI 10.3
[2020-04-11] MEDS: PANTOPRAZOLE 40 MG/10 ML VIAL IVP SCH (16:38)
--- NOTE | 2020-04-11 17:41 | P.CNPUL ---
History of Present Illness Consult date: 04/11/20 Requesting physician: Ronak Botello Reason for consult: pulmonary embolism Chief complaint: Shortness of breath. History of present illness: This is a 55-year-old female with history of breast cancer, history of COPD, nicotine dependence, patient is also known to have previous history of ileostomy supposedly related to injury by chemotherapy. Patient was admitted with mostly symptoms of 2 days history shortness of breath and some vague chest pain. Denies any radiation of the pain, denies any pleuritic symptoms, patient felt dizzy and lightheaded, and had a near syncopal episode. At any rate CT angiogram of the chest was positive for pulmonary embolism, patient was admitted and this consult was initiated. Patient is mostly bedbound, not active, and it may have been a provoking factor not to mention her previous history of breast carcinoma. Review of Systems CONSTITUTIONAL: Denies fever or chills. HEENT: Denies blurred vision, vision changes, or eye pain. Denies hemoptysis CARDIOVASCULAR: Denies chest pain, orthopnea, PND or palpitations RESPIRATORY: No shortness of breath. GASTROINTESTINAL: Denies abdominal pain. Denies nausea or vomiting. HEMATOLOGIC: Denies bleeding disorders. GENITOURINARY: Denies any blood in urine. SKIN: Denies pruitis. Denies rash. Past Medical History Past Medical History: Cancer Additional Past Medical History / Comment(s): Breast CA, chronic pain History of Any Multi-Drug Resistant Organisms: None Reported Past Surgical History: Breast Surgery, Hysterectomy Additional Past Surgical History / Comment(s): ileostomy,alexis mastectomy, complete hysterectomy Past Psychological History: No Psychological Hx Reported Smoking Status: Current every day smoker Past Alcohol Use History: None Reported Past Drug Use History: None Reported Medications and Allergies Home Medications Medication Instructions Recorded Confirmed Type Metoclopramide [Reglan] 5 mg PO TID 04/11/20 04/11/20 History Allergies Allergy/AdvReac Type Severity Reaction Status Date / Time adhesive tape Allergy Rash/Hives Verified 04/11/20 08:08 metronidazole [From Flagyl] Allergy Rash/Hives Verified 04/11/20 08:08 Physical Exam Vitals: Vital Signs Temp Pulse Pulse Resp BP BP Pulse Ox 04/11/20 15:47 75 04/11/20 12:00 98.7 F 75 16 129/86 96 04/11/20 08:00 97 F L 71 16 114/75 96 04/11/20 04:25 98.1 F 76 16 98/52 98 04/11/20 03:32 98.7 F 80 16 118/80 100 04/11/20 03:00 73 16 120/83 100 04/11/20 02:00 80 18 120/86 99 04/11/20 01:00 137 H 16 107/74 96 04/11/20 00:06 73 16 129/86 99 04/10/20 23:30 74 16 106/73 99 04/10/20 22:08 97.6 F 87 18 121/81 98 Intake and Output 04/11/20 04/11/20 04/11/20 06:59 14:59 22:59 Intake Total 644.5 Output Total 120 400 Balance -120 644.5 -400 Intake: Intake, IV Titration 644.5 Amount Heparin Sod,Pork in 0.45% 44.5 NaCl 25,000 unit In 0.45 % NaCl 1 250ml.bag @ 18 UNITS/KG/HR 5.225 mls/hr IV .Q24H [facility] Rx#: [id number] Sodium Chloride 0.9% 1, 600 000 ml @ 75 mls/hr IV . [id number] [facility] Rx#:[id number] Oral 0 Output: Urine 120 300 Stool 100 Other: # Voids 1 Weight 29 kg 29 kg GENERAL: Revealed a 55-year-old female, frail looking, in no distress. HEENT: PERRLA, EOMI, neck is, no neck masses, no JVD. CARDIOVASCULAR: S1 and S2 present. No murmurs, rubs, or gallops. PULMONARY: Symmetrical chest expansion, clear throughout no crackles or rhonchi or wheezes. ABDOMEN: Soft, nontender, nondistended, normoactive bowel sounds. No palpable organomegaly. Ileostomy noted in the left lower quadrant MUSCULOSKELETAL: No joint swelling or deformity. EXTREMITIES: No cyanosis, clubbing, or pedal edema. NEUROLOGICAL: Alert and oriented 3 focal neurologic deficits. SKIN: Dry mucous membranes, sunken cheeks temporal wasting Lymphatics: No cervical adenopathy. Results - Laboratory Findings CBC and BMP: 04/11/20 06:16 04/10/20 22:35 PT/INR, D-dimer PT 11.5 sec (9.0-12.0) 04/10/20 22:35 INR 1.1 (<1.2) 04/10/20 22:35 D-Dimer 1.33 mg/L FEU (<0.60) H 04/10/20 22:35 Abnormal lab findings: Abnormal Labs 04/10/20 04/10/20 04/10/20 22:35 22:35 22:35 RBC 2.95 L Hgb 10.8 L Hct MCV 118.1 H MCH 36.8 H RDW 16.5 H Neutrophils # Lymphocytes # 0.8 L Macrocytosis Marked A APTT D-Dimer 1.33 H Sodium Potassium Carbon Dioxide BUN Creatinine Glucose POC Glucose (mg/dL) Plasma Lactic Acid Chase Calcium Total Bilirubin AST Alkaline Phosphatase Total Protein Albumin Urine Appearance Cloudy H Ur Specific [place] 1.050 H Urine Protein 1+ H Urine Blood Small H Ur Leukocyte Esterase Large H Urine RBC 22 H Urine WBC 110 H Urine WBC Clumps Many H Hyaline Casts 626 H Urine Mucus Rare H 04/10/20 04/10/20 04/11/20 22:35 22:51 00:15 RBC Hgb Hct MCV MCH RDW Neutrophils # Lymphocytes # Macrocytosis APTT D-Dimer Sodium 132 L Potassium 3.4 L Carbon Dioxide 20 L BUN 19 H Creatinine 0.49 L Glucose 161 H POC Glucose (mg/dL) 153 H Plasma Lactic Acid Chase 4.7 H* Calcium 6.9 L Total Bilirubin 1.7 H AST 59 H Alkaline Phosphatase 235 H Total Protein 5.1 L Albumin 2.3 L Urine Appearance Ur Specific [place] Urine Protein Urine Blood Ur Leukocyte Esterase Urine RBC Urine WBC Urine WBC Clumps Hyaline Casts Urine Mucus 04/11/20 04/11/20 04/11/20 02:55 06:16 06:16 RBC 2.64 L Hgb 9.7 L Hct 31.0 L MCV 117.4 H MCH 36.6 H RDW 16.3 H Neutrophils # 7.9 H Lymphocytes # Macrocytosis Marked A APTT 99.6 H D-Dimer Sodium Potassium Carbon Dioxide BUN Creatinine Glucose POC Glucose (mg/dL) Plasma Lactic Acid Chase 3.0 H* Calcium Total Bilirubin AST Alkaline Phosphatase Total Protein Albumin Urine Appearance Ur Specific [place] Urine Protein Urine Blood Ur Leukocyte Esterase Urine RBC Urine WBC Urine WBC Clumps Hyaline Casts Urine Mucus 11/04/11/20 04/11/20 06:16 09:39 13:00 RBC Hgb Hct MCV MCH RDW Neutrophils # Lymphocytes # Macrocytosis APTT D-Dimer Sodium Potassium Carbon Dioxide BUN Creatinine Glucose POC Glucose (mg/dL) Plasma Lactic Acid Chase 2.9 H* 2.9 H* 3.5 H* Calcium Total Bilirubin AST Alkaline Phosphatase Total Protein Albumin Urine Appearance Ur Specific [place] Urine Protein Urine Blood Ur Leukocyte Esterase Urine RBC Urine WBC Urine WBC Clumps Hyaline Casts Urine Mucus - Diagnostic Findings CT scan - chest: image reviewed (There is evidence of embolism in the right lower lobe pulmonary artery and atelectasis is noted. There is also evidence of emphysema.) Assessment and Plan Assessment: Impression: Acute pulmonary embolism. Electrolytes imbalance including hypovolemic hyponatremia and hypokalemia History of breast cancer. History of ileostomy. Dehydration on presentation. Hypovolemic hyponatremia. Chronic pain syndrome. Severe malnutrition, protein calorie malnutrition, BMI is 10. Recommendation: Continue heparin. Transition in the next 24 hours to either Xarelto or Eliquis, Consider discharge planning in the next 24 hours. We'll continue to follow Time with Patient: Greater than 30
[2020-04-12] MEDS: SODIUM CHLORIDE 0.9% 1,000 ML IV SCH (06:27)
[2020-04-12] MEDS: HEPARIN SOD,PORK IN 0.45% NACL 25,000 UNIT in 0.45% NACL 1 250ML.BAG IV SCH (06:28)
[2020-04-12] MEDS: PANTOPRAZOLE 40 MG/10 ML VIAL IVP SCH (09:29)
[2020-04-12] MEDS ORDERED: Potassium Replacement Protocol 1 EACH MISC MISCELLANE PRN (11:45)
--- NOTE | 2020-04-12 11:50 | P.DS ---
Providers Date of admission: 04/11/20 02:55 Attending physician: Ronak Botello Consults: 04/11/20 01:30 Consult Physician Stat Consulting Provider: Digna He Consult Reason/Comments: pulmonary embolism Do you want consulting provider notified?: Yes Consult Physician Stat Consulting Provider: Osbaldo Kang Consult Reason/Comments: pulmonary embolism Do you want consulting provider notified?: Yes, Notify in am Primary care physician: Kip Redding Hospital Course: 55-year-old female came in with compensative syncope, generalized weakness. Patient is found to have pulmonary embolism patient was having chest pain pleuritic at that time along with shortness of breath. These improved. Patient is not requiring any oxygen at this time. Patient is a thin built is severely cachectic malnourished. Patient has BMI of around 10. Patient had a history of breast cancer and patient in the past had a ileostomy. Since here ileostomy patient refuses to take any medications, refuses to eat or drink patient barely eats. I had a lengthy discussion with the on phone. since her ileostomy patient stopped and or drinking because he doesn't like the way the stool comes out of the ileostomy. Patient has been bedbound mostly and she understands this is because of malnourishment and that led to having a DVT and a PE. After extensive discussion with the patient patient is agreeable to take ensure and she believes she cannot take any pills as pills get stuck in the ostomy. After extensive counseling patient agreed to take Eliquis. Patient denied any UTI symptoms urine is of normal received Rocephin in ER. Patient admits to losing significant weight recently because she doesn't want to eat anything. 04/12/2020 Patient doesn't have any respiratory issues at this time patient will be discharged on Xarelto for DVT. Upper lengthy discussion and counseling patient is agreeable PE and she said she will start with baby foods patient declined to go to subacute rehabilitation and patient declined to participate with physical therapy. Patient is agreeable for home care which will be arranged. Did discuss with her on phone yesterday patient doesn't eat anything. Doesn't like to take any medications. Constitutional: Denied any fatigue denied any fever. Cardio vascular: denied any chest pain, palpitations Gastrointestinal denied any nausea vomiting Pulmonary: Denied any shortness of breath cough Neurologic denied any new focal deficits All inpatient medications were reviewed and appropriate changes in these medications as dictated in the interval history and assessment and plan. PHYSICAL EXAMINATION: GENERAL: The patient is alert and oriented x3, not in any acute distress. Thin built small nourished dry skin HEENT: Pupils are round and equally reacting to light. EOMI. No scleral icterus. No conjunctival pallor. Normocephalic, atraumatic. No pharyngeal erythema. No thyromegaly. CARDIOVASCULAR: S1 and S2 present. No murmurs, rubs, or gallops. PULMONARY: Chest is clear to auscultation, no wheezing or crackles. ABDOMEN: Soft, nontender, nondistended, normoactive bowel sounds. No palpable organomegaly. MUSCULOSKELETAL: No joint swelling or deformity. EXTREMITIES: No cyanosis, clubbing, or pedal edema. NEUROLOGICAL: Gross neurological examination did not reveal any focal deficits. Endocrine generalized weakness SKIN: Dry mucous membranes, sunken cheeks temporal wasting Assessment and Plan Plan: -Right lower lobe pulmonary emboli: Patient will be discharged on above- mentioned medication -Generalized weakness secondary to severe malnourishment patient is agreeable to eat. Patient declined subacute rehab -Chest pain secondary to be which resolved -Asymptomatic bacteriuria: No need to continue the antibiotics -Hypovolemic hyponatremia: -Hypokalemia potassium will be placed secondary to poor by mouth intake -History of breast cancer in remission -Lactic acidosis: Secondary to severe intravascular depletion: IV fluids will be continued, improved now -Nicotine abuse -Apparently patient had a alcohol use history patient just use to drink beers but quit doing that as well as patient started having intractable nausea vomiting because of possible alcoholic gastritis Patient Condition at Discharge: Serious Plan - Discharge Summary Discharge Rx Participant: No New Discharge Prescriptions: New Rivaroxaban [Xarelto Starter Pack] 0 mg PO DIRECTED 30 Days #1 pack No Action Metoclopramide [Reglan] 5 mg PO TID Discharge Medication List Metoclopramide [Reglan] 5 mg PO TID 04/11/20 [History] Rivaroxaban [Xarelto Starter Pack] 0 mg PO DIRECTED 30 Days #1 pack 04/12/20 [Rx] Follow up Appointment(s)/Referral(s): Digna He MD [STAFF PHYSICIAN] - 1 Week Kip Redding MD [Primary Care Provider] - 3 Days Discharge Disposition: HOME WITH HOME HEALTH SERVICES
[2020-04-12] MEDS ORDERED: CYANOCOBALAMIN 1,000 MCG/ML 1 ML VIAL IM ONE (11:51)
[2020-04-12] MEDS ORDERED: POTASSIUM CHLORIDE 10 MEQ in WATER FOR INJECTION 1 100ML.BAG IVPB SCH (12:00)
[2020-04-12 12:03] LABS: Anisocytosis Slight; Basophils % (A) 0 %; Eosinophils % (A) 0 %; HCT 27.7 % (34.0-46.0); Lymphocytes # (A) 1.3 k/uL (1.0-4.8); Lymphocytes % (A) 19 %; MCH 37.1 pg (25.0-35.0); MCHC 32.5 g/dL (31.0-37.0); MCV 114.1 fL (80.0-100.0); Macrocytosis Marked; Mean Platelet Volume 8.2; Monocytes # (A) 0.4 k/uL (0-1.0); Monocytes % (A) 6 %; Neutrophils % (A) 74 %; Platelet Count 178 k/uL (150-450); RBC 2.42 m/uL (3.80-5.40); RDW 16.6 % (11.5-15.5); WBC 6.8 k/uL (3.8-10.6)
--- NOTE | 2020-04-12 13:23 | P.PN ---
Subjective Progress Note Date: 04/12/20 CHIEF COMPLAINT: Pulmonary emboli HISTORY OF PRESENT ILLNESS: Patient examined this morning at the bedside. She denies shortness of breath. She denies chest pain or pressure. Vital signs are stable. Echocardiogram completed revealed ejection fraction 60-65%, [id number] mitral regurgitation and mild tricuspid regurgitation. PHYSICAL EXAM: VITAL SIGNS: Reviewed. GENERAL: Well-developed in no acute distress-extremely frail and cachectic.. HEENT: Head is normocephalic. Pupils are equal, round. Sclerae anicteric. Mucous membranes of the mouth are moist. Neck supple. No JVD or thyromegaly LUNGS: Respirations even and unlabored. Lungs essentially clear to auscultation bilaterally. HEART: Regular rate and rhythm. S1 and S2 heard. EXTREMITIES: Normal range of motion. No clubbing or cyanosis. Peripheral pulses intact. No lower extremity edema. Wound to upper aspect of left lower extremity. NEUROLOGIC: Awake and alert. Oriented x 3. ASSESSMENT: Right lower lobe pulmonary emboli Chest pain, resolved History of breast cancer History of ileostomy Severe malnourishment, BMI 10 PLAN: Anticoagulation per pulmonary Stable for discharge from a cardiac standpoint Patient to follow up outpatient with Dr. iLndsay Nurse practitioner note has been reviewed by physician. Signing provider agrees with the documented findings, assessment, and plan of care. Objective - Vital Signs Vital signs: Vital Signs Temp 99.5 F 04/12/20 04:30 Pulse 75 04/12/20 04:30 Resp 18 04/12/20 04:30 BP 116/78 04/12/20 04:30 Pulse Ox 98 04/12/20 04:30 Intake & Output 04/11/20 04/12/20 04/12/20 18:59 06:59 18:59 Intake Total 644.5 75.951 0 Output Total 400 440 100 Balance 244.5 -364.049 -100 Weight 29 kg 30.1 kg Intake: Intake, IV Titration 644.5 75.951 Amount Heparin Sod,Pork in 0.45% 44.5 75.951 NaCl 25,000 unit In 0.45 % NaCl 1 250ml.bag @ 18 UNITS/KG/HR 5.225 mls/hr IV .Q24H [facility] Rx#: [id number] Sodium Chloride 0.9% 1, 600 000 ml @ 75 mls/hr IV . [id number] [facility] Rx#:[id number] Oral 0 0 Output: Urine 300 240 100 Stool 100 200 Other: # Voids 1 1 # Bowel Movements 0 - Labs CBC & Chem 7: 04/12/20 11:16 04/10/20 22:35 Labs: Abnormal Lab Results - Last 24 Hours (Table) 04/11/20 04/11/20 04/11/20 Range/Units 06:16 13:00 17:06 RBC (3.80-5.40) m/uL Hgb (11.4-16.0) gm/dL Hct (34.0-46.0) % MCV (80.0-100.0) fL MCH (25.0-35.0) pg RDW (11.5-15.5) % Neutrophils # 7.9 H (1.3-7.7) k/uL Macrocytosis APTT >200.0 H* (22.0-30.0) sec Plasma Lactic Acid Chase 3.5 H* (0.7-2.0) mmol/L 04/12/20 04/12/20 04/12/20 Range/Units 01:02 11:16 11:16 RBC 2.42 L (3.80-5.40) m/uL Hgb 9.0 L (11.4-16.0) gm/dL Hct 27.7 L (34.0-46.0) % MCV 114.1 H (80.0-100.0) fL MCH 37.1 H (25.0-35.0) pg RDW 16.6 H (11.5-15.5) % Neutrophils # (1.3-7.7) k/uL Macrocytosis Marked A APTT 30.3 H 33.9 H (22.0-30.0) sec Plasma Lactic Acid Chase (0.7-2.0) mmol/L Microbiology - Last 24 Hours (Table) 04/11/20 00:15 Blood Culture - Preliminary Blood No Growth after 24 hours
[2020-04-12 13:25] VITALS: BP 94/67; PULSE 89; RESP 16; TEMP 98.9
[2020-04-12 13:39] LABS: Hypersegmented Neutrophils Present
--- NOTE | 2020-04-12 14:32 | P.PN ---
Subjective Progress Note Date: 04/12/20 Principal diagnosis: Acute pulmonary embolism This is a 55-year-old female with history of breast cancer, history of COPD, nicotine dependence, patient is also known to have previous history of ileostomy supposedly related to injury by chemotherapy. Patient was admitted with mostly symptoms of 2 days history shortness of breath and some vague chest pain. Denies any radiation of the pain, denies any pleuritic symptoms, patient felt dizzy and lightheaded, and had a near syncopal episode. At any rate CT angiogram of the chest was positive for pulmonary embolism, patient was admitted and this consult was initiated. Patient is mostly bedbound, not active, and it may have been a provoking factor not to mention her previous history of breast carcinoma. The patient is seen today 04/12/2020 in follow-up on the selective care unit. She is currently sitting up in bed. Awake and alert in no acute distress. She is maintaining good O2 saturation in the mid to upper 90s on room air. She's afebrile. Hemodynamically stable. White count 6.8. Hemoglobin 9.0. She is currently on a heparin drip. Objective - Vital Signs Vital signs: Vital Signs Temp 98.9 F 04/12/20 08:00 Pulse 89 04/12/20 08:00 Resp 16 04/12/20 08:00 BP 94/67 04/12/20 08:00 Pulse Ox 97 04/12/20 08:00 Intake & Output 04/11/20 04/12/20 04/12/20 18:59 06:59 18:59 Intake Total 644.5 75.951 0 Output Total 400 440 200 Balance 244.5 -364.049 -200 Weight 29 kg 30.1 kg Intake: Intake, IV Titration 644.5 75.951 Amount Heparin Sod,Pork in 0.45% 44.5 75.951 NaCl 25,000 unit In 0.45 % NaCl 1 250ml.bag @ 18 UNITS/KG/HR 5.225 mls/hr IV .Q24H [facility] Rx#: [id number] Sodium Chloride 0.9% 1, 600 000 ml @ 75 mls/hr IV . [id number] [facility] Rx#:[id number] Oral 0 0 Output: Urine 300 240 200 Stool 100 200 Other: # Voids 1 1 # Bowel Movements 0 - Exam GENERAL: Revealed a pleasant 55-year-old female, frail looking, in no distress. On room air. HEENT: PERRLA, EOMI, neck is, no neck masses, no JVD. CARDIOVASCULAR: S1 and S2 present. No murmurs, rubs, or gallops. PULMONARY: Symmetrical chest expansion, clear throughout no crackles or rhonchi or wheezes. ABDOMEN: Soft, nontender, nondistended, normoactive bowel sounds. No palpable organomegaly. Ileostomy noted in the left lower quadrant MUSCULOSKELETAL: No joint swelling or deformity. EXTREMITIES: No cyanosis, clubbing, or pedal edema. NEUROLOGICAL: Alert and oriented 3 focal neurologic deficits. SKIN: Dry mucous membranes, sunken cheeks temporal wasting Lymphatics: No cervical adenopathy. - Labs CBC & Chem 7: 04/12/20 11:16 04/10/20 22:35 Labs: Abnormal Lab Results - Last 24 Hours (Table) 04/11/20 04/11/20 04/12/20 Range/Units 06:16 17:06 01:02 RBC (3.80-5.40) m/uL Hgb (11.4-16.0) gm/dL Hct (34.0-46.0) % MCV (80.0-100.0) fL MCH (25.0-35.0) pg RDW (11.5-15.5) % Neutrophils # 7.9 H (1.3-7.7) k/uL Macrocytosis APTT >200.0 H* 30.3 H (22.0-30.0) sec 04/12/20 04/12/20 Range/Units 11:16 11:16 RBC 2.42 L (3.80-5.40) m/uL Hgb 9.0 L (11.4-16.0) gm/dL Hct 27.7 L (34.0-46.0) % MCV 114.1 H (80.0-100.0) fL MCH 37.1 H (25.0-35.0) pg RDW 16.6 H (11.5-15.5) % Neutrophils # (1.3-7.7) k/uL Macrocytosis Marked A APTT 33.9 H (22.0-30.0) sec Microbiology - Last 24 Hours (Table) 04/11/20 00:15 Blood Culture - Preliminary Blood No Growth after 24 hours Assessment and Plan Assessment: 1 Acute pulmonary embolism. 2 Electrolytes imbalance including hypovolemic hyponatremia and hypokalemia 3 History of breast cancer. 4 History of ileostomy. 5 Dehydration on presentation. 6 Hypovolemic hyponatremia. Chronic pain syndrome. 7 Severe malnutrition, protein calorie malnutrition, BMI is 10. Plan: The patient was seen and evaluated by Dr. He She is stable from the pulmonary standpoint On room air Transition from heparin drip to oral anticoagulant Home once cleared by medicine I, the cosigning physician, performed a history & physical examination of the patient. Lungs sounds are clear. Maintaining good O2 saturations in the 90s on room air. I discussed the assessment and plan of care with my nurse practitioner, Ana Laura Ibrahim. I attest to the above note as dictated by her.
== END 2020-04-12 13:19 | disposition home or self-care (01) | DRG 175 ==
LOC: EC 21:58 → 3SCARD 04-11 02:55
PROVIDERS: ADMIT Hospitalist; ATTEND Hospitalist
DX: I26.99 Other pulmonary embolism without acute cor pulmonale (principal); E43 Unspecified severe protein-calorie malnutrition; Z68.1 Body mass index [BMI] 19.9 or less, adult; N39.0 Urinary tract infection, site not specified; E87.2 Acidosis; R64 Cachexia; E87.1 Hypo-osmolality and hyponatremia; M48.54XA Collapsed vertebra, not elsewhere classified, thoracic region, initial encounter for fracture; J98.11 Atelectasis; E86.1 Hypovolemia; E86.0 Dehydration; Z93.2 Ileostomy status; J43.9 Emphysema, unspecified; E87.6 Hypokalemia; G89.4 Chronic pain syndrome; F17.200 Nicotine dependence, unspecified, uncomplicated; Z71.3 Dietary counseling and surveillance; Z79.899 Other long term (current) drug therapy; Z74.01 Bed confinement status; Z92.21 Personal history of antineoplastic chemotherapy; Z90.13 Acquired absence of bilateral breasts and nipples; Z90.710 Acquired absence of both cervix and uterus; Z91.048 Other nonmedicinal substance allergy status; Z85.3 Personal history of malignant neoplasm of breast; Z88.1 Allergy status to other antibiotic agents
CPT/HCPCS: 36415; 51701; 71046; 71275; 80053; 81001; 83605; 83735; 83880; 84100; 84484; 85025; 85379; 85610; 85730; 87040; 93005; 93306; 96365; 96366; 96367; 96368; 96376; 99285